=== PATIENT | female | born 1960 | race Caucasian/White ===

== ENCOUNTER 2018-09-01 12:42 | Emergency (ER) | payer MEDICARE, OTHER ==
[~2018-09-01] VITALS: Ht 172.7 cm; Wt 145.2 kg
[~2018-09-01 12:42] MED LIST: ALBU90OI INH; AMOCLA875 PO; ATOR10 PO; BUME2 PO; Bactrim Ds Tab1 EACH PO; CALC.25 PO; CEPH500; CLON.2 PO; Cleocin HCl300 MG PO; DILT120 PO; DILT180 PO; Glyburide5 MG PO; HYDACE5 PO; HYDACE7.5; Humalog100 UNIT/1 SC; INDO25 PO; Keflex500 MG PO; LISI5 PO; LOSHYD; Lantus100 UNIT/1 SQ; MAGOXI400 PO; METF500 PO; MORP60ER PO; MUPI2TC TOP; Oxycontin20 MG PO; POTCHL10ER; POTCHL10ER PO; PREG75 PO; PROC10 PO; Prinivil10 MG PO; RXHYDACE PO; TRULICITY0.75 MG/0. SQ; VERAPAMIL SR240 MG PO
[2018-09-01 13:28] LABS: Source, Urine Clean Catch
[2018-09-01 13:31] LABS: BASOPHILS ABSOLUTE AUTO 0.04 K/mm3 (0.00-0.23); BASOPHILS PERCENT AUTO 1 % (0-2); EOSINOPHILS ABSOLUTE AUTO 0.12 K/mm3 (0.00-0.68); EOSINOPHILS PERCENT AUTO 2 % (0-6); Hematocrit 47.9 % (33.0-51.0); Hemoglobin 15.2 g/dL (11.5-16.0); IMMATURE GRAN ABSOLUTE AUTO 0.04 K/mm3 (0.00-0.10); IMMATURE GRAN PERCENT AUTO 1 % (0-1); LYMPHOCYTES ABSOLUTE AUTO 1.95 K/mm3 (0.84-5.20); LYMPHOCYTES PERCENT AUTO 25 % (21-46); MONOCYTES ABSOLUTE AUTO 0.37 K/mm3 (0.16-1.47); MONOCYTES PERCENT AUTO 5 % (4-13); Mean Corpuscular HGB Conc 31.7 g/dL (31.5-36.5); Mean Corpuscular Volume 88 fL (80-100); Mean Platelet Volume 10.8 fL (9.1-12.4); NEUTROPHILS ABSOLUTE AUTO 5.28 K/mm3 (1.96-9.15); NEUTROPHILS PERCENT AUTO 68 % (41-73); Platelet Count 183 K/mm3 (150-400); RDW Coefficient Variation 12.8 % (11.7-14.2); RDW Standard Deviation 41.3 fL (35.1-46.3); Red Blood Cell Count 5.43 M/mm3 (3.80-5.20)
[2018-09-01 13:42] LABS: Appearance, Urine Clear (Clear); Bilirubin, Urine Neg (Neg); Blood, Urine 1+ (Neg); Color, Urine Yellow (P-Yellow); Glucose Qualitative, Urine 3+ (Neg); Ketones, Urine Neg (Neg); Leukocyte Esterase, Urine 3+ (Neg); Nitrite, Urine Neg (Neg); Protein, Urine 2+ (Neg); Specific Gravity, Urine 1.015 (1.003-1.022); Urobilinogen, Urine 1+ (Normal)
[2018-09-01 13:50] LABS: Alanine Aminotransfer (ALT/SGP 35 U/L (12-78); Albumin, Blood 3.2 g/dL (3.4-5.0); Albumin/Globulin Ratio 0.7 (0.8-1.8); Alk Phos 174 U/L (50-136); Anion Gap 4 mmol/L (6-16); Aspartate Aminotrans (AST/SGOT 45 U/L (12-37); Bilirubin, Total 0.7 mg/dL (0.1-1.0); Blood Urea Nitrogen 10 mg/dL (8-24); Bun/Creatinine Ratio 15.1 (12.0-20.0); CO2, Blood 30 mmol/L (21-32); Calcium, Blood 9.3 mg/dL (8.5-10.1); Chloride, Blood 101 mmol/L (98-108); Creatinine, Blood 0.66 mg/dL (0.40-1.00); Globulin, Blood 4.7 g/dL (2.2-4.0); Glomerular Filtration Rate >60 (60-); Glucose, Blood 317 mg/dL (70-99); Potassium, Blood 5.2 mmol/L (3.5-5.5); Sodium, Blood 135 mmol/L (136-145); Total Protein, Blood 7.9 g/dL (6.4-8.2)
[2018-09-01 13:54] LABS: Squamous Epithelial Cells Mod /hpf (Few)
[2018-09-01 13:55] LABS: Bacteria Rare /hpf
[2018-09-01] MEDS ORDERED: Bactrim Ds Tab1 EACH PO (15:11)
== END 2018-09-01 15:49 | disposition home or self-care (01) ==
LOC: ER 12:42
PROVIDERS: Physician Assistant
DX: K13.79 Other lesions of oral mucosa (principal); L98.9 Disorder of the skin and subcutaneous tissue, unspecified; B95.62 Methicillin resistant Staphylococcus aureus infection as the cause of diseases classified elsewhere; I10 Essential (primary) hypertension; E11.9 Type 2 diabetes mellitus without complications; Z91.048 Other nonmedicinal substance allergy status; Z88.1 Allergy status to other antibiotic agents; Z79.4 Long term (current) use of insulin; Z79.899 Other long term (current) drug therapy
CPT/HCPCS: 36415; 71046; 80053; 81001; 85025; 87086; 99283-25

== ENCOUNTER 2019-04-07 21:21 | Inpatient (IN) | payer MEDICARE, OTHER ==
[~2019-04-07] VITALS: Ht 172.7 cm; Wt 156.4 kg
[2019-04-07] MEDS ORDERED: SUBOXONE 8 MG-1 EACH SL (21:38)
[2019-04-07 22:47] LABS: BASOPHILS ABSOLUTE AUTO 0.08 K/mm3 (0.00-0.23); BASOPHILS PERCENT AUTO 1 % (0-2); EOSINOPHILS ABSOLUTE AUTO 0.43 K/mm3 (0.00-0.68); EOSINOPHILS PERCENT AUTO 3 % (0-6); Hematocrit 42.6 % (33.0-51.0); Hemoglobin 13.4 g/dL (11.5-16.0); IMMATURE GRAN ABSOLUTE AUTO 0.05 K/mm3 (0.00-0.10); IMMATURE GRAN PERCENT AUTO 0 % (0-1); LYMPHOCYTES ABSOLUTE AUTO 5.31 K/mm3 (0.84-5.20); LYMPHOCYTES PERCENT AUTO 35 % (21-46); MONOCYTES ABSOLUTE AUTO 1.24 K/mm3 (0.16-1.47); MONOCYTES PERCENT AUTO 8 % (4-13); Mean Corpuscular HGB 29.8 pg (26.0-34.0); Mean Corpuscular HGB Conc 31.5 g/dL (31.5-36.5); Mean Corpuscular Volume 95 fL (80-100); Mean Platelet Volume 11.4 fL (9.1-12.4); NEUTROPHILS ABSOLUTE AUTO 8.15 K/mm3 (1.96-9.15); NEUTROPHILS PERCENT AUTO 54 % (41-73); Platelet Count 197 K/mm3 (150-400); RDW Coefficient Variation 13.2 % (11.7-14.2); RDW Standard Deviation 46.3 fL (35.1-46.3); White Blood Cell Count 15.26 K/mm3 (4.00-11.30)
[2019-04-07 22:57] LABS: Albumin, Blood 3.5 g/dL (3.4-5.0); Albumin/Globulin Ratio 0.9 (0.8-1.8); Bilirubin, Total 0.6 mg/dL (0.1-1.0); Bun/Creatinine Ratio 12.3 (12.0-20.0); Calcium, Blood 9.4 mg/dL (8.5-10.1); Creatinine, Blood 4.57 mg/dL (0.40-1.00); Potassium, Blood 4.5 mmol/L (3.5-5.5); Total Protein, Blood 7.5 g/dL (6.4-8.2)
[2019-04-08 01:12] LABS: PO2 Arterial 73.9 mmHg (80-100); pH Blood Arterial 7.26 (7.35-7.45)
--- NOTE | 2019-04-08 02:46 | NUR ---
0225 PT ADMITTED RM [phone] PER CART FROM ER, ALL PERSONAL BELONGINGS TO INCLUDE PURSE CONTAINING RX OF SUBOXONE 8MG TABLETS LOCKED UP SAFE BY SECURITY.
[2019-04-08 05:16] LABS: BASOPHILS ABSOLUTE AUTO 0.05 K/mm3 (0.00-0.23); BASOPHILS PERCENT AUTO 0 % (0-2); EOSINOPHILS ABSOLUTE AUTO 0.49 K/mm3 (0.00-0.68); EOSINOPHILS PERCENT AUTO 4 % (0-6); Hematocrit 36.9 % (33.0-51.0); Hemoglobin 11.5 g/dL (11.5-16.0); IMMATURE GRAN ABSOLUTE AUTO 0.03 K/mm3 (0.00-0.10); IMMATURE GRAN PERCENT AUTO 0 % (0-1); LYMPHOCYTES ABSOLUTE AUTO 4.42 K/mm3 (0.84-5.20); LYMPHOCYTES PERCENT AUTO 39 % (21-46); MONOCYTES ABSOLUTE AUTO 0.81 K/mm3 (0.16-1.47); MONOCYTES PERCENT AUTO 7 % (4-13); Mean Corpuscular HGB 29.6 pg (26.0-34.0); Mean Corpuscular HGB Conc 31.2 g/dL (31.5-36.5); Mean Corpuscular Volume 95 fL (80-100); Mean Platelet Volume 10.8 fL (9.1-12.4); NEUTROPHILS ABSOLUTE AUTO 5.49 K/mm3 (1.96-9.15); NEUTROPHILS PERCENT AUTO 49 % (41-73); Platelet Count 155 K/mm3 (150-400); RDW Coefficient Variation 13.3 % (11.7-14.2); RDW Standard Deviation 46.4 fL (35.1-46.3); Red Blood Cell Count 3.89 M/mm3 (3.80-5.20); White Blood Cell Count 11.29 K/mm3 (4.00-11.30)
--- NOTE | 2019-04-08 05:22 | NUR ---
SHIFT SUMMARY: 58 Y/O OBESE FEMALE RESTED COMFORTABLY IN BED WHILE WEARING B-PAP WITH CONTINUOUS O2 SAT REFLECTING 91%, PT DESATS TO 80% WITHOUT BIPAP WORN, RLE ELEVATED ONE PILLOW WITH ICE PACK APPLIED FOR COMFORT (PT NOT AWARE OF XRAY RESULTS YET TO RIGHT KNEE), ALL MEDS TAKEN TO PHARMACY AND RECEIPT PLACED ON CHART (SUBOXONE AND ZOFRAN), HAPPY AND COOPERATIVE, RECEIVING 2L BOLUS LACTATED RINGERS CURRENTLY, BED LOW POSITION, CALL LIGHT AT SIDE.
[2019-04-08 05:37] LABS: Bun/Creatinine Ratio 13.4 (12.0-20.0); Calcium, Blood 9.1 mg/dL (8.5-10.1); Creatinine, Blood 4.25 mg/dL (0.40-1.00); Potassium, Blood 4.3 mmol/L (3.5-5.5)
--- NOTE | 2019-04-08 08:51 | NUR ---
PATIENT WAS OFFERED THE BEDPAN DUE TO FEELING THE NEED TO VOID BUT WHILE ON THE BEDPAN PATIENT WAS UNABLE TO GO. RN WAS NOTIFIED.
[2019-04-08 10:16] LABS: Source, Urine Clean Catch
[2019-04-08 10:23] LABS: Blood, Urine 3+ (Neg); Glucose Qualitative, Urine Neg (Neg); Ketones, Urine Neg (Neg); Leukocyte Esterase, Urine 3+ (Neg); Nitrite, Urine Neg (Neg); Protein, Urine 2+ (Neg); Urobilinogen, Urine NORM (Normal)
[2019-04-08 10:30] LABS: Appearance, Urine Cloudy (Clear); Color, Urine Yellow (P-Yellow)
[2019-04-08 10:31] LABS: Bilirubin, Urine 1+ (Neg)
[2019-04-08 10:32] LABS: Bacteria Many /hpf; Red Blood Cells, Urine TNTC /hpf (0-2); Squamous Epithelial Cells Few /hpf (Few); Transitional Epithelial Cells Few /hpf ({null, 0-Rare}); White Blood Cells, Urine TNTC /hpf (0-5)
--- NOTE | 2019-04-08 13:58 | NUR ---
SHE TRANSFERRED TO [facility], AND CHAIR WITH 2 ASSIST THIS AM. SHE ACTUALLY DID MOST OF THE WORK. SHE WASN'T SURE HOW MUCH SHE WAS GOING TO BE ABLE TO MOVE HER R LEG. SHE VOIDED 600 MLS. SPECIMEN SENT TO LAB PER ER ORDER. SHE SAT UP FOR HRS. BACK TO BED WITH 2 ASSIST AFTER ANOTHER VOID. SHE HAS EATEN WELL. OXYCONTIN SHE SAYS HAS NOT HELPED HER R LEG PAIN. SHE HAS NOT C/O ANY BACK PAIN BUT SAYS THAT IS WHAT SHE TAKE OXYCONTIN AT HOME FOR. HER IV SITE FAILED. THE PROCEDURE NURSE IS WITH HER NOW TO POSSIBLY PUT IN A PG D/T POOR IV ACCESS. REPEAT CXR DONE. I RECEIVED FAXES FROM BOTH HER PHARMACIES IN ORDER TO COMPLETE HER MED REC.
[2019-04-08] MEDS ORDERED: TRULICITY1.5 MG/0.5 SC (15:44)
[2019-04-08] MEDS ORDERED: Robaxin750 MG PO (15:45)
[2019-04-08] MEDS ORDERED: LOSA50 PO (15:46)
[2019-04-08] MEDS ORDERED: Ondansetron Odt8 MG SL (15:47)
[2019-04-08] MEDS ORDERED: FURO40 PO (15:49)
[2019-04-08] MEDS ORDERED: Ropinirole HCl0.5 MG PO (15:54)
[2019-04-08] MEDS ORDERED: TEMA15 PO (15:58)
[2019-04-08] MEDS ORDERED: METO100ER PO (15:59)
[2019-04-08] MEDS ORDERED: METF500C PO (16:03)
--- NOTE | 2019-04-08 17:52 | NUR ---
DR. GUTIERRES ROUNDED THIS EVENING. MED REC DONE AND DISCUSSED GENERALLY WITH HIM. NO NEW ORDERS AT THIS TIME. SHE IS ABLE TO TRANSFER WITH 1 ASSIST. SHE HAS HAD PAIN IN HER R LEG ALL DAY. CXR DONE. O2 2L ALL DAY 90-92%. CONTINUOUS BIOX ON. IVF'S INFUSING AT 100/HR. POWER GLIDE INSERTED TODAY. ISOLATION DC'D PER PROTOCOL.
--- NOTE | 2019-04-09 04:28 | NUR ---
SHIFT SUMMARY: 58 Y/O FEMALE RESTED COMFORTABLY ALL SHIFT, SECURITY CAME TO BEDSIDE AND RETURNED PERSONAL BELONGINGS LOCKED UP TO PATIENTS SON (PATIENT OK WITH THIS), C/O CHRONIC BACK PAIN 02/12 WITH OXYCONTIN 20MG PO GIVEN WITH RELIEF FELT, DENIES NAUSEA, ABLE TRANSFER X 1 STANDBY ASSIST TO BSC WITHOUT ISSUE WHILE WEARING O2 AT 2L/M PER NASAL CANNULA, ABLE BEAR WEIGHT ON RIGHT LEG, BED LOW POSITION, CALL LIGHT AT SIDE.
[2019-04-09 05:42] LABS: Hematocrit 38.3 % (33.0-51.0); Hemoglobin 11.9 g/dL (11.5-16.0)
[2019-04-09 05:56] LABS: Albumin, Blood 3.1 g/dL (3.4-5.0); Anion Gap 3 mmol/L (6-16); Blood Urea Nitrogen 43 mg/dL (8-24); Bun/Creatinine Ratio 22.2 (12.0-20.0); CO2, Blood 31 mmol/L (21-32); Calcium, Blood 9.4 mg/dL (8.5-10.1); Chloride, Blood 105 mmol/L (98-108); Creatinine, Blood 1.94 mg/dL (0.40-1.00); Glomerular Filtration Rate 28 (60-); Glucose, Blood 204 mg/dL (70-99); Magnesium, Blood 1.9 mg/dL (1.6-2.4); Phosphorus, Blood 3.7 mg/dL (2.5-4.9); Potassium, Blood 4.8 mmol/L (3.5-5.5); Sodium, Blood 139 mmol/L (136-145)
--- NOTE | 2019-04-09 18:40 | NUR ---
SHIFT SUMMARY PT UP TO BATHROOM THIS AFTERNOON FOR SHOWER. SLEPT REMAINDER OF AFTERNOON AND AROUSED FOR SUPPER. FAMILY AND CAREGIVER IN TO VISIT THIS MORNING WHILE MD IN. O2 DECREASED TO 1L/M THIS MORNING AND TOOK SHOWER ON RA. DENIED INCREASED RESP DISTRESS WITH SHOWER. AFTER IN BED ON RA AND BEGINNING TO DOZE SATS WOULD DROP TO HIGH 80'S. O2 REPLACED AT 1L/M AND WITH NO DROPS AFTER THAT ACCORDING TO CONTINUOUS OXIMETRY. REQUESTS R KNEE KEPT ON PILLOW FOR COMFORT.
--- NOTE | 2019-04-10 04:19 | NUR ---
SHIFT SUMMARY: 58 Y/O OBESE MALE RESTED COMFORTABLY ALL SHIFT, DENIES PAIN OR NAUSEA, O2 WORN AT 1L/M PER NASAL CANNULA, DENIES DYSPNEA, ABLE UTILIZE [facility] X1 STANDBY ASSIST, BED LOW POSITION, CALL LIGHT AT SIDE, SLEEP STUDY PERFORMED BY RESPIRATORY THERAPY THIS SHIFT.
--- NOTE | 2019-04-10 05:13 | NUR ---
pt is doing a sleep study and i will wake her up closer to 6am due to nurse request
[2019-04-10 06:15] LABS: Hematocrit 38.9 % (33.0-51.0); Hemoglobin 12.2 g/dL (11.5-16.0)
[2019-04-10 06:42] LABS: Albumin, Blood 3.1 g/dL (3.4-5.0); Anion Gap 4 mmol/L (6-16); Blood Urea Nitrogen 32 mg/dL (8-24); Bun/Creatinine Ratio 25.2 (12.0-20.0); CO2, Blood 31 mmol/L (21-32); Calcium, Blood 9.7 mg/dL (8.5-10.1); Chloride, Blood 104 mmol/L (98-108); Creatinine, Blood 1.27 mg/dL (0.40-1.00); Glomerular Filtration Rate 46 (60-); Glucose, Blood 207 mg/dL (70-99); Magnesium, Blood 1.6 mg/dL (1.6-2.4); Phosphorus, Blood 3.2 mg/dL (2.5-4.9); Potassium, Blood 4.7 mmol/L (3.5-5.5); Sodium, Blood 139 mmol/L (136-145)
--- NOTE | 2019-04-10 10:00 | NUR ---
PT PLEASANT COOP A/O. STATES PAIN 10/10, BEST IS 8/10. MED PER EMAR. H/R REG, NO MURMER NOTED NO TELE. LUNGS CLEAR, RESP EASY, UNLABORED. ON 1L 02. HAS BEEN >95%. TURNED OFF O2. MAINTAIN >93%, BT X4 ALST BM 3 DAYS. PT STATES NORM FOR HER. VOIDS PER BATHROOM. SBA/ BED IN LOW POSITION, CALL LITE IN REACH, CALLS APPROP
--- NOTE | 2019-04-10 10:46 | NUR ---
Patient is lying in bed and alert. Patient states her pain level is a 10 but states that she is given pain meds. just prior to my visit. Patient openly shares about the difficulties of her home situation in terms of not being able to move about the house due to stairs and other obsticles. Patient says that she feels trapped. Patient also admits to loneliness due to her son, Carlos (who lives with her) being gone most of the time. I listen empathically, provide companionship, discuss other housing options, address the loneliness issue with spiritual guidance and provide prayer. Patient thanks me for the visit.
[2019-04-10] MEDS ORDERED: Amlodipine Besyl5 MG PO (15:41)
[2019-04-10] MEDS ORDERED: OXYC10ER PO (15:41)
[2019-04-10] MEDS ORDERED: Bactrim Ds Tab1 EACH PO (15:42)
--- NOTE | 2019-04-10 16:24 | NUR ---
DISCHARGE REVIEWED DWITH PT . PT VERBALIZED UNDERSTANDING OF MEDS AND INSTRUCTIONS. IV PULLED INTACT. NO TELE. PT WHEELED TO DOOR BY AIDE. [id number]
== END 2019-04-10 16:23 | disposition home or self-care (01) | DRG 682 ==
LOC: ER 21:21 → MEDS 04-08 02:11
PROVIDERS: Emergency Medicine; Internal Medicine Nephrology; ADMIT Internal Medicine
DX: N17.9 Acute kidney failure, unspecified (principal); G93.41 Metabolic encephalopathy; J96.01 Acute respiratory failure with hypoxia; J96.02 Acute respiratory failure with hypercapnia; N39.0 Urinary tract infection, site not specified; F11.20 Opioid dependence, uncomplicated; E87.4 Mixed disorder of acid-base balance; Z68.42 Body mass index [BMI] 45.0-49.9, adult; E86.9 Volume depletion, unspecified; B96.20 Unspecified Escherichia coli [E. coli] as the cause of diseases classified elsewhere; B96.1 Klebsiella pneumoniae [K. pneumoniae] as the cause of diseases classified elsewhere; G47.33 Obstructive sleep apnea (adult) (pediatric); E66.01 Morbid (severe) obesity due to excess calories; G25.81 Restless legs syndrome; T40.4X5A Adverse effect of other synthetic narcotics, initial encounter; J44.9 Chronic obstructive pulmonary disease, unspecified; E88.09 Other disorders of plasma-protein metabolism, not elsewhere classified; E86.0 Dehydration; G89.29 Other chronic pain; N18.2 Chronic kidney disease, stage 2 (mild); E11.22 Type 2 diabetes mellitus with diabetic chronic kidney disease; I12.9 Hypertensive chronic kidney disease with stage 1 through stage 4 chronic kidney disease, or unspecified chronic kidney disease; N25.81 Secondary hyperparathyroidism of renal origin; Z88.1 Allergy status to other antibiotic agents; Z88.8 Allergy status to other drugs, medicaments and biological substances; Z79.4 Long term (current) use of insulin; Z79.899 Other long term (current) drug therapy
CPT/HCPCS: 36415; 36600; 71046; 73562-RT; 76770; 80048; 80053; 80069; 81001; 82803; 82947; 83036; 83690; 83735; 85014; 85018; 85025; 87077; 87081; 87086; 87186; 94660; 94762; 96360; 96361; 99285-25; C1751; J0696; J1644; J1815; J7030; J7120

== ENCOUNTER 2019-06-01 23:42 | Emergency (ER) | payer MEDICARE, OTHER ==
[~2019-06-01] VITALS: Ht 172.7 cm; Wt 145.2 kg
[~2019-06-01 23:42] MED LIST changes: +Amlodipine Besyl5 MG PO; +FURO40 PO; +LOSA50 PO; +METF500C PO; +METO100ER PO; +OXYC10ER PO; +Ondansetron Odt8 MG SL; +Robaxin750 MG PO; +Ropinirole HCl0.5 MG PO; +SUBOXONE 8 MG-1 EACH SL; +TEMA15 PO; +TRULICITY1.5 MG/0.5 SC
[2019-06-02 00:57] LABS: BASOPHILS ABSOLUTE AUTO 0.09 K/mm3 (0.00-0.23); BASOPHILS PERCENT AUTO 1 % (0-2); EOSINOPHILS ABSOLUTE AUTO 0.19 K/mm3 (0.00-0.68); EOSINOPHILS PERCENT AUTO 2 % (0-6); Hematocrit 43.5 % (33.0-51.0); Hemoglobin 14.3 g/dL (11.5-16.0); IMMATURE GRAN ABSOLUTE AUTO 0.03 K/mm3 (0.00-0.10); IMMATURE GRAN PERCENT AUTO 0 % (0-1); LYMPHOCYTES ABSOLUTE AUTO 4.11 K/mm3 (0.84-5.20); LYMPHOCYTES PERCENT AUTO 39 % (21-46); MONOCYTES ABSOLUTE AUTO 0.67 K/mm3 (0.16-1.47); MONOCYTES PERCENT AUTO 6 % (4-13); Mean Corpuscular HGB 28.5 pg (26.0-34.0); Mean Corpuscular HGB Conc 32.9 g/dL (31.5-36.5); Mean Corpuscular Volume 87 fL (80-100); Mean Platelet Volume 10.4 fL (9.1-12.4); NEUTROPHILS ABSOLUTE AUTO 5.35 K/mm3 (1.96-9.15); NEUTROPHILS PERCENT AUTO 51 % (41-73); Platelet Count 226 K/mm3 (150-400); RDW Coefficient Variation 12.6 % (11.7-14.2); RDW Standard Deviation 39.8 fL (35.1-46.3); Red Blood Cell Count 5.02 M/mm3 (3.80-5.20); White Blood Cell Count 10.44 K/mm3 (4.00-11.30)
[2019-06-02 01:17] LABS: Alanine Aminotransfer (ALT/SGP 35 U/L (12-78); Albumin, Blood 3.5 g/dL (3.4-5.0); Albumin/Globulin Ratio 0.8 (0.8-1.8); Alk Phos 138 U/L (50-136); Anion Gap 6 mmol/L (6-16); Aspartate Aminotrans (AST/SGOT 20 U/L (12-37); Bilirubin, Total 0.6 mg/dL (0.1-1.0); Blood Urea Nitrogen 15 mg/dL (8-24); Bun/Creatinine Ratio 23.5 (12.0-20.0); CO2, Blood 28 mmol/L (21-32); Calcium, Blood 10.2 mg/dL (8.5-10.1); Chloride, Blood 101 mmol/L (98-108); Creatinine, Blood 0.64 mg/dL (0.40-1.00); Globulin, Blood 4.3 g/dL (2.2-4.0); Glomerular Filtration Rate >60 (60-); Glucose, Blood 300 mg/dL (70-99); Potassium, Blood 4.3 mmol/L (3.5-5.5); Sodium, Blood 135 mmol/L (136-145); Total Protein, Blood 7.8 g/dL (6.4-8.2)
== END 2019-06-02 01:37 | disposition home or self-care (01) ==
LOC: ER 23:42
PROVIDERS: Emergency Medicine
DX: G43.A0 Cyclical vomiting, in migraine, not intractable (principal); Z88.8 Allergy status to other drugs, medicaments and biological substances; Z88.1 Allergy status to other antibiotic agents; Z79.899 Other long term (current) drug therapy; Z79.4 Long term (current) use of insulin; Z79.891 Long term (current) use of opiate analgesic; I10 Essential (primary) hypertension; E11.9 Type 2 diabetes mellitus without complications
CPT/HCPCS: 36415; 80053; 85025; 93005; 93010; 96361; 96374; 99283-25; J2405; J7030

== ENCOUNTER 2019-07-25 15:24 | Emergency (ER) | payer MEDICARE, OTHER ==
[~2019-07-25] VITALS: Ht 172.7 cm; Wt 145.2 kg
[2019-07-25 16:41] LABS: BASOPHILS ABSOLUTE AUTO 0.07 K/mm3 (0.00-0.23); BASOPHILS PERCENT AUTO 1 % (0-2); EOSINOPHILS ABSOLUTE AUTO 0.13 K/mm3 (0.00-0.68); EOSINOPHILS PERCENT AUTO 1 % (0-6); Hematocrit 47.6 % (33.0-51.0); Hemoglobin 15.3 g/dL (11.5-16.0); IMMATURE GRAN ABSOLUTE AUTO 0.01 K/mm3 (0.00-0.10); IMMATURE GRAN PERCENT AUTO 0 % (0-1); LYMPHOCYTES ABSOLUTE AUTO 3.44 K/mm3 (0.84-5.20); LYMPHOCYTES PERCENT AUTO 36 % (21-46); MONOCYTES ABSOLUTE AUTO 0.54 K/mm3 (0.16-1.47); MONOCYTES PERCENT AUTO 6 % (4-13); Mean Corpuscular HGB 28.7 pg (26.0-34.0); Mean Corpuscular HGB Conc 32.1 g/dL (31.5-36.5); Mean Corpuscular Volume 89 fL (80-100); Mean Platelet Volume 10.5 fL (9.1-12.4); NEUTROPHILS ABSOLUTE AUTO 5.25 K/mm3 (1.96-9.15); NEUTROPHILS PERCENT AUTO 56 % (41-73); Platelet Count 204 K/mm3 (150-400); RDW Coefficient Variation 13.1 % (11.7-14.2); Red Blood Cell Count 5.33 M/mm3 (3.80-5.20); White Blood Cell Count 9.44 K/mm3 (4.00-11.30)
[2019-07-25 17:08] LABS: Alanine Aminotransfer (ALT/SGP 29 U/L (12-78); Albumin, Blood 3.8 g/dL (3.4-5.0); Albumin/Globulin Ratio 0.8 (0.8-1.8); Alk Phos 130 U/L (50-136); Anion Gap 6 mmol/L (6-16); Aspartate Aminotrans (AST/SGOT 19 U/L (12-37); Bilirubin, Total 0.5 mg/dL (0.1-1.0); Blood Urea Nitrogen 19 mg/dL (8-24); Bun/Creatinine Ratio 26.2 (12.0-20.0); CO2, Blood 29 mmol/L (21-32); Calcium, Blood 10.2 mg/dL (8.5-10.1); Chloride, Blood 101 mmol/L (98-108); Creatinine, Blood 0.73 mg/dL (0.40-1.00); Globulin, Blood 4.7 g/dL (2.2-4.0); Glomerular Filtration Rate >60 (60-); Glucose, Blood 320 mg/dL (70-99); Potassium, Blood 4.7 mmol/L (3.5-5.5); Sodium, Blood 136 mmol/L (136-145); Total Protein, Blood 8.5 g/dL (6.4-8.2)
[2019-07-25 18:04] LABS: Source, Urine Clean Catch
[2019-07-25 18:08] LABS: Bilirubin, Urine Neg (Neg); Blood, Urine 1+ (Neg); Glucose Qualitative, Urine 4+ (Neg); Ketones, Urine 1+ (Neg); Leukocyte Esterase, Urine 3+ (Neg); Nitrite, Urine Pos (Neg); Protein, Urine 2+ (Neg); Urobilinogen, Urine NORM (Normal)
[2019-07-25 18:18] LABS: Appearance, Urine Hazy (Clear); Color, Urine Yellow (P-Yellow)
[2019-07-25 18:20] LABS: Bacteria Many /hpf; Red Blood Cells, Urine 0-2 /hpf (0-2); Squamous Epithelial Cells Few /hpf (Few)
[2019-07-25] MEDS ORDERED: ONDA4ODT MM (18:51)
[2019-07-25] MEDS ORDERED: Loperamide2 MG PO (18:51)
[2019-07-25] MEDS ORDERED: CEFP200 PO (18:51)
== END 2019-07-25 19:50 | disposition home or self-care (01) ==
LOC: ER 15:24
PROVIDERS: Physician Assistant
DX: K52.9 Noninfective gastroenteritis and colitis, unspecified (principal); N39.0 Urinary tract infection, site not specified; I10 Essential (primary) hypertension; E11.9 Type 2 diabetes mellitus without complications; Z91.09 Other allergy status, other than to drugs and biological substances; Z88.1 Allergy status to other antibiotic agents; Z79.899 Other long term (current) drug therapy; Z79.4 Long term (current) use of insulin
CPT/HCPCS: 36415; 80053; 81001; 83690; 84484; 85025; 87077; 87086; 87186; 93005; 93010; 96374; 96375; 99283-25; J2405; J2765; J7120

== ENCOUNTER 2020-01-17 00:22 | Day surgery (SDC) | payer MEDICARE, OTHER ==
[~2020-01-17 00:22] MED LIST changes: +CEFP200 PO; +Loperamide2 MG PO; +ONDA4ODT MM
== END 2020-01-17 23:55 | disposition home or self-care (01) ==
LOC: WOUND 00:22
DX: L89.893 Pressure ulcer of other site, stage 3 (principal); E11.40 Type 2 diabetes mellitus with diabetic neuropathy, unspecified; E11.51 Type 2 diabetes mellitus with diabetic peripheral angiopathy without gangrene; I10 Essential (primary) hypertension; Z88.1 Allergy status to other antibiotic agents; Z91.041 Radiographic dye allergy status; Z79.4 Long term (current) use of insulin; Z79.899 Other long term (current) drug therapy
CPT/HCPCS: G0463

== ENCOUNTER 2020-01-24 00:16 | Day surgery (SDC) | payer MEDICARE, OTHER | END 2020-01-24 23:27 | disposition home or self-care (01) | LOC: WOUND 00:16 | DX: L89.893 Pressure ulcer of other site, stage 3 (principal); E11.40 Type 2 diabetes mellitus with diabetic neuropathy, unspecified; E11.51 Type 2 diabetes mellitus with diabetic peripheral angiopathy without gangrene; I87.2 Venous insufficiency (chronic) (peripheral); I10 Essential (primary) hypertension; Z79.4 Long term (current) use of insulin; Z79.899 Other long term (current) drug therapy | CPT/HCPCS: 87070; 87071; 87075; 87077; 87186; 87205 ==

== ENCOUNTER 2020-01-31 00:17 | Day surgery (SDC) | payer MEDICARE, OTHER | END 2020-01-31 22:55 | disposition home or self-care (01) | LOC: WOUND 00:17 | DX: L89.893 Pressure ulcer of other site, stage 3 (principal); E11.40 Type 2 diabetes mellitus with diabetic neuropathy, unspecified; E11.51 Type 2 diabetes mellitus with diabetic peripheral angiopathy without gangrene; I87.2 Venous insufficiency (chronic) (peripheral); I10 Essential (primary) hypertension; Z79.899 Other long term (current) drug therapy; Z79.4 Long term (current) use of insulin | CPT/HCPCS: G0463 ==

== ENCOUNTER 2020-02-07 00:11 | Day surgery (SDC) | payer MEDICARE, OTHER | END 2020-02-07 23:23 | disposition home or self-care (01) | LOC: WOUND 00:11 | DX: L89.893 Pressure ulcer of other site, stage 3 (principal); E11.40 Type 2 diabetes mellitus with diabetic neuropathy, unspecified; I73.9 Peripheral vascular disease, unspecified; I87.2 Venous insufficiency (chronic) (peripheral); I10 Essential (primary) hypertension ==

== ENCOUNTER 2020-02-14 00:24 | Day surgery (SDC) | payer MEDICARE, OTHER | END 2020-02-14 22:48 | disposition home or self-care (01) | LOC: WOUND 00:24 | DX: L89.893 Pressure ulcer of other site, stage 3 (principal); E11.51 Type 2 diabetes mellitus with diabetic peripheral angiopathy without gangrene; E11.40 Type 2 diabetes mellitus with diabetic neuropathy, unspecified; I87.2 Venous insufficiency (chronic) (peripheral); I10 Essential (primary) hypertension; Z79.899 Other long term (current) drug therapy; Z79.4 Long term (current) use of insulin ==

== ENCOUNTER 2020-02-21 00:12 | Day surgery (SDC) | payer MEDICARE, OTHER | END 2020-02-21 23:15 | disposition home or self-care (01) | LOC: WOUND 00:12 | DX: L89.893 Pressure ulcer of other site, stage 3 (principal); E11.40 Type 2 diabetes mellitus with diabetic neuropathy, unspecified; E11.51 Type 2 diabetes mellitus with diabetic peripheral angiopathy without gangrene; I87.2 Venous insufficiency (chronic) (peripheral); Z79.4 Long term (current) use of insulin ==

== ENCOUNTER 2020-02-28 00:18 | Day surgery (SDC) | payer MEDICARE, OTHER ==
[2020-03-17] MEDS ORDERED: Hydrocodone-Ap1 EA23 PO (21:59)
== END 2020-02-28 23:02 | disposition home or self-care (01) ==
LOC: WOUND 00:18
DX: L89.893 Pressure ulcer of other site, stage 3 (principal); E11.40 Type 2 diabetes mellitus with diabetic neuropathy, unspecified; I73.9 Peripheral vascular disease, unspecified; I87.2 Venous insufficiency (chronic) (peripheral)

== ENCOUNTER 2020-03-06 00:14 | Day surgery (SDC) | payer MEDICARE, OTHER ==
[2020-03-17] MEDS ORDERED: Hydrocodone-Ap1 EA23 PO (21:59)
== END 2020-03-06 22:49 | disposition home or self-care (01) ==
LOC: WOUND 00:14
DX: L89.893 Pressure ulcer of other site, stage 3 (principal); E11.51 Type 2 diabetes mellitus with diabetic peripheral angiopathy without gangrene; E11.40 Type 2 diabetes mellitus with diabetic neuropathy, unspecified; I87.2 Venous insufficiency (chronic) (peripheral); I10 Essential (primary) hypertension; Z79.899 Other long term (current) drug therapy; Z79.4 Long term (current) use of insulin

== ENCOUNTER 2020-05-01 00:24 | Day surgery (SDC) | payer MEDICARE, OTHER ==
[~2020-05-01 00:24] MED LIST changes: +Hydrocodone-Ap1 EA23 PO
[2020-05-22] MEDS ORDERED: Norco 5-325 Ta1 EACH PO (15:43)
== END 2020-05-01 22:52 | disposition home or self-care (01) ==
LOC: WOUND 00:24
DX: E11.621 Type 2 diabetes mellitus with foot ulcer (principal); L97.522 Non-pressure chronic ulcer of other part of left foot with fat layer exposed; E11.52 Type 2 diabetes mellitus with diabetic peripheral angiopathy with gangrene; I96 Gangrene, not elsewhere classified; E11.40 Type 2 diabetes mellitus with diabetic neuropathy, unspecified; I87.2 Venous insufficiency (chronic) (peripheral); I10 Essential (primary) hypertension; I89.0 Lymphedema, not elsewhere classified; J44.9 Chronic obstructive pulmonary disease, unspecified; G47.30 Sleep apnea, unspecified; K74.60 Unspecified cirrhosis of liver; Z92.21 Personal history of antineoplastic chemotherapy; Z92.3 Personal history of irradiation; Z88.1 Allergy status to other antibiotic agents; Z91.041 Radiographic dye allergy status; Z79.4 Long term (current) use of insulin; Z79.899 Other long term (current) drug therapy; Z86.718 Personal history of other venous thrombosis and embolism

== ENCOUNTER 2020-05-08 08:13 | Emergency (ER) | payer MEDICARE, OTHER ==
[~2020-05-08] VITALS: Ht 172.7 cm; Wt 149.7 kg
[2020-05-08] MEDS ORDERED: ZOSTRIX HP56.6 GM TOP (09:16)
== END 2020-05-08 09:22 | disposition home or self-care (01) ==
LOC: ER 08:13
DX: G89.29 Other chronic pain (principal); M25.561 Pain in right knee; I10 Essential (primary) hypertension; E11.9 Type 2 diabetes mellitus without complications; S90.111A Contusion of right great toe without damage to nail, initial encounter; Z86.718 Personal history of other venous thrombosis and embolism; Z91.041 Radiographic dye allergy status; Z88.1 Allergy status to other antibiotic agents; Z79.4 Long term (current) use of insulin; Z79.899 Other long term (current) drug therapy; W01.0XXA Fall on same level from slipping, tripping and stumbling without subsequent striking against object, initial encounter
CPT/HCPCS: 73562-RT; 73630; 93971; 99284-25

== ENCOUNTER 2020-05-13 16:42 | Emergency (ER) | payer MEDICARE, OTHER ==
[~2020-05-13] VITALS: Ht 172.7 cm; Wt 149.7 kg
[~2020-05-13 16:42] MED LIST changes: +ZOSTRIX HP56.6 GM TOP
[2020-05-13 18:02] LABS: Source, Urine Catheter
[2020-05-13 18:06] LABS: BASOPHILS ABSOLUTE AUTO 0.05 K/mm3 (0.00-0.23); BASOPHILS PERCENT AUTO 1 % (0-2); EOSINOPHILS ABSOLUTE AUTO 0.24 K/mm3 (0.00-0.68); EOSINOPHILS PERCENT AUTO 3 % (0-6); Hematocrit 45.4 % (33.0-51.0); IMMATURE GRAN ABSOLUTE AUTO 0.02 K/mm3 (0.00-0.10); IMMATURE GRAN PERCENT AUTO 0 % (0-1); LYMPHOCYTES ABSOLUTE AUTO 2.57 K/mm3 (0.84-5.20); LYMPHOCYTES PERCENT AUTO 31 % (21-46); MONOCYTES ABSOLUTE AUTO 0.48 K/mm3 (0.16-1.47); MONOCYTES PERCENT AUTO 6 % (4-13); Mean Corpuscular HGB 27.5 pg (26.0-34.0); Mean Corpuscular HGB Conc 30.8 g/dL (31.5-36.5); Mean Corpuscular Volume 89 fL (80-100); Mean Platelet Volume 11.1 fL (9.1-12.4); NEUTROPHILS ABSOLUTE AUTO 4.84 K/mm3 (1.96-9.15); NEUTROPHILS PERCENT AUTO 59 % (41-73); Platelet Count 176 K/mm3 (150-400); RDW Coefficient Variation 13.6 % (11.7-14.2); Red Blood Cell Count 5.09 M/mm3 (3.80-5.20)
[2020-05-13 18:20] LABS: Alanine Aminotransfer (ALT/SGP 32 U/L (12-78); Albumin, Blood 3.5 g/dL (3.4-5.0); Albumin/Globulin Ratio 0.7 (0.8-1.8); Alk Phos 144 U/L (50-136); Anion Gap 6 mmol/L (6-16); Aspartate Aminotrans (AST/SGOT 20 U/L (12-37); Bilirubin, Total 0.5 mg/dL (0.1-1.0); Blood Urea Nitrogen 13 mg/dL (8-24); Bun/Creatinine Ratio 17.9 (12.0-20.0); CO2, Blood 28 mmol/L (21-32); Calcium, Blood 9.8 mg/dL (8.5-10.1); Chloride, Blood 104 mmol/L (98-108); Creatinine, Blood 0.73 mg/dL (0.40-1.00); Globulin, Blood 4.9 g/dL (2.2-4.0); Glomerular Filtration Rate >60 (60-); Glucose, Blood 380 mg/dL (70-99); Potassium, Blood 4.4 mmol/L (3.5-5.5); Sodium, Blood 138 mmol/L (136-145); Total Protein, Blood 8.4 g/dL (6.4-8.2)
[2020-05-13 18:21] LABS: Appearance, Urine Clear (Clear); Bilirubin, Urine Neg (Neg); Blood, Urine Neg (Neg); Color, Urine Yellow (P-Yellow); Glucose Qualitative, Urine 4+ (Neg); Ketones, Urine Neg (Neg); Leukocyte Esterase, Urine 1+ (Neg); Nitrite, Urine Neg (Neg); Protein, Urine Neg (Neg); Specific Gravity, Urine 1.015 (1.003-1.022); Urobilinogen, Urine NORM (Normal)
[2020-05-13 18:44] LABS: Bacteria Rare /hpf; Red Blood Cells, Urine 0-2 /hpf (0-2); Squamous Epithelial Cells Few /hpf (Few)
[2020-05-13 21:36] LABS: International Normalized Ratio 1.01; Prothrombin Time Results 10.8 Sec (9.7-11.5)
[2020-05-13] MEDS ORDERED: BACTRIM DS TAB1 EAC1 PO (23:33)
== END 2020-05-13 23:46 | disposition home or self-care (01) ==
LOC: ER 16:42
PROVIDERS: Physician Assistant
DX: N76.4 Abscess of vulva (principal); L02.412 Cutaneous abscess of left axilla; E66.9 Obesity, unspecified; G89.29 Other chronic pain; I10 Essential (primary) hypertension; E11.9 Type 2 diabetes mellitus without complications; Z88.2 Allergy status to sulfonamides; Z79.4 Long term (current) use of insulin; Z79.899 Other long term (current) drug therapy; Z91.02 Food additives allergy status
CPT/HCPCS: 10061; 36415; 71045; 80053; 81001; 83605; 84484; 85025; 85610; 85730; 87086; 93005; 93010; 99284-25; A9270-GY

== ENCOUNTER 2020-06-06 00:30 | Day surgery (SDC) | payer MEDICARE, OTHER ==
[~2020-06-06 00:30] MED LIST changes: +BACTRIM DS TAB1 EAC1 PO; +Norco 5-325 Ta1 EACH PO
== END 2020-06-06 23:09 | disposition home or self-care (01) ==
LOC: WOUND 00:30
DX: E11.621 Type 2 diabetes mellitus with foot ulcer (principal); L97.521 Non-pressure chronic ulcer of other part of left foot limited to breakdown of skin; E11.52 Type 2 diabetes mellitus with diabetic peripheral angiopathy with gangrene; I96 Gangrene, not elsewhere classified; E11.59 Type 2 diabetes mellitus with other circulatory complications; I87.2 Venous insufficiency (chronic) (peripheral); I89.0 Lymphedema, not elsewhere classified; I10 Essential (primary) hypertension; E11.40 Type 2 diabetes mellitus with diabetic neuropathy, unspecified; J44.9 Chronic obstructive pulmonary disease, unspecified; G47.30 Sleep apnea, unspecified; K74.60 Unspecified cirrhosis of liver; Z92.21 Personal history of antineoplastic chemotherapy; Z92.3 Personal history of irradiation; Z88.1 Allergy status to other antibiotic agents; Z91.041 Radiographic dye allergy status; Z79.4 Long term (current) use of insulin; Z79.899 Other long term (current) drug therapy; Z86.718 Personal history of other venous thrombosis and embolism
CPT/HCPCS: G0463

== ENCOUNTER 2020-10-26 14:40 | Emergency (ER) | payer MEDICARE, OTHER ==
[~2020-10-26] VITALS: Ht 172.7 cm; Wt 158.8 kg
[~2020-10-26 14:40] MED LIST changes: -Amlodipine Besyl5 MG PO; -Humalog100 UNIT/1 SC; -Lantus100 UNIT/1 SQ; -PREG75 PO; -Robaxin750 MG PO
[2020-10-26 16:02] LABS: BASOPHILS ABSOLUTE AUTO 0.08 K/mm3 (0.00-0.23); BASOPHILS PERCENT AUTO 1 % (0-2); EOSINOPHILS ABSOLUTE AUTO 0.19 K/mm3 (0.00-0.68); EOSINOPHILS PERCENT AUTO 1 % (0-6); Hematocrit 44.6 % (33.0-51.0); IMMATURE GRAN ABSOLUTE AUTO 0.06 K/mm3 (0.00-0.10); IMMATURE GRAN PERCENT AUTO 0 % (0-1); LYMPHOCYTES ABSOLUTE AUTO 1.41 K/mm3 (0.84-5.20); LYMPHOCYTES PERCENT AUTO 10 % (21-46); MONOCYTES ABSOLUTE AUTO 0.65 K/mm3 (0.16-1.47); MONOCYTES PERCENT AUTO 5 % (4-13); Mean Corpuscular HGB 27.1 pg (26.0-34.0); Mean Corpuscular HGB Conc 31.4 g/dL (31.5-36.5); Mean Corpuscular Volume 86 fL (80-100); Mean Platelet Volume 10.5 fL (9.1-12.4); NEUTROPHILS ABSOLUTE AUTO 11.14 K/mm3 (1.96-9.15); NEUTROPHILS PERCENT AUTO 82 % (41-73); Platelet Count 192 K/mm3 (150-400); RDW Coefficient Variation 13.4 % (11.7-14.2); RDW Standard Deviation 41.9 fL (35.1-46.3); Red Blood Cell Count 5.16 M/mm3 (3.80-5.20); White Blood Cell Count 13.53 K/mm3 (4.00-11.30)
[2020-10-26 16:21] LABS: Alanine Aminotransfer (ALT/SGP 26 U/L (12-78); Albumin, Blood 3.6 g/dL (3.4-5.0); Albumin/Globulin Ratio 0.7 (0.8-1.8); Alk Phos 153 U/L (50-136); Anion Gap 3 mmol/L (6-16); Aspartate Aminotrans (AST/SGOT 35 U/L (12-37); Bilirubin, Total 0.8 mg/dL (0.1-1.0); Blood Urea Nitrogen 11 mg/dL (8-24); Bun/Creatinine Ratio 18.1 (12.0-20.0); CO2, Blood 30 mmol/L (21-32); Calcium, Blood 9.9 mg/dL (8.5-10.1); Chloride, Blood 101 mmol/L (98-108); Creatinine, Blood 0.61 mg/dL (0.40-1.00); Globulin, Blood 5.1 g/dL (2.2-4.0); Glomerular Filtration Rate >60 (60-); Glucose, Blood 295 mg/dL (70-99); Potassium, Blood 4.4 mmol/L (3.5-5.5); Sodium, Blood 134 mmol/L (136-145); Total Protein, Blood 8.7 g/dL (6.4-8.2)
[2020-10-26] MEDS ORDERED: Amlodipine Besyl5 MG PO (20:31)
[2020-10-26] MEDS ORDERED: HUMALOG JU100 UNIT/2 (20:32)
[2020-10-26] MEDS ORDERED: Lantus100 UNIT/1 SQ (20:33)
[2020-10-26] MEDS ORDERED: Robaxin750 MG PO (20:34)
[2020-10-26] MEDS ORDERED: FLUC150A PO (20:34)
[2020-10-26] MEDS ORDERED: PREG150 PO (20:35)
[2020-10-26] MEDS ORDERED: CYCL10 PO (20:36)
[2020-10-26] MEDS ORDERED: DICLOFENAC SOD100 G1 TOP (20:36)
[2020-10-26] MEDS ORDERED: LOSARTAN POTASS25 M2 PO (20:41)
[2020-10-26] MEDS ORDERED: HUMALOG KW100 UNIT/1 SC (20:42)
[2020-10-26] MEDS ORDERED: FUROSEMIDE40 MG PO (20:43)
[2020-10-26] MEDS ORDERED: KLOR-CON 1010 ME1 PO (20:43)
[2020-10-26 21:04] LABS: Source, Urine Clean Catch
[2020-10-26 21:06] LABS: Bilirubin, Urine Neg (Neg); Blood, Urine 1+ (Neg); Glucose Qualitative, Urine 3+ (Neg); Ketones, Urine Neg (Neg); Leukocyte Esterase, Urine 1+ (Neg); Nitrite, Urine Neg (Neg); Protein, Urine 2+ (Neg); Specific Gravity, Urine 1.015 (1.003-1.022); Urobilinogen, Urine NORM (Normal); pH, Urine 6.5 (5.0-8.0)
[2020-10-26 21:15] LABS: Appearance, Urine Clear (Clear); Color, Urine Yellow (P-Yellow)
[2020-10-26 21:16] LABS: Amorphous Light (0-Heavy); Bacteria Few /hpf; Red Blood Cells, Urine 0-2 /hpf (0-2); Squamous Epithelial Cells Rare /hpf (Few)
[2020-10-26] MEDS ORDERED: AZIT250 PO (21:51)
[2020-10-26] MEDS ORDERED: AMOCLA875 PO (21:51)
== END 2020-10-26 22:16 | disposition home or self-care (01) ==
LOC: ER 14:40
PROVIDERS: Physician Assistant
DX: R55 Syncope and collapse (principal); J18.9 Pneumonia, unspecified organism; M79.642 Pain in left hand; M79.641 Pain in right hand; M25.562 Pain in left knee; M25.561 Pain in right knee; I10 Essential (primary) hypertension; E11.9 Type 2 diabetes mellitus without complications; Z91.041 Radiographic dye allergy status; Z79.4 Long term (current) use of insulin; Z79.899 Other long term (current) drug therapy; W01.0XXA Fall on same level from slipping, tripping and stumbling without subsequent striking against object, initial encounter
CPT/HCPCS: 51701; 71045; 73120; 73560-LT; 73560-RT; 80053; 81001; 83880; 84484; 85025; 87086; 93005; 93010; 96360; 99284-25; A9270; J7120